=== PATIENT | female | born 1940 | race Hispanic/Latino ===

== ENCOUNTER 2017-05-04 21:36 | Emergency (ER) | payer OTHER, MEDICARE ==
[~2017-05-04] VITALS: Ht 160 cm; Wt 63.5 kg
[~2017-05-04 21:36] MED LIST: ATORVASTATIN CA10 M1 PO; CIPRO500 M1 PO; FLAGYL500 MG PO; HYDROCHLOROTHIA50 M1 PO; LINZESS145 MC1 PO; LISINOPRIL5 M1 PO; METFORMIN HCL500 M3 PO; VANCOMYCIN HCL5 G1 PO
--- NOTE | 2017-05-04 22:29 | ED GI/GU/ABDOMINAL COMPLAINT ---
History of Present Illness General Chief Complaint: Abdominal Pain/Flank Pain Stated Complaint: TINGLING GUMS,ABD PAIN,SHAKING Source: patient Exam Limitations: no limitations Vital Signs & Intake/Output Vital Signs & Intake/Output Vital Signs Date Time Temp Pulse Resp B/P B/P Pulse O2 O2 Flow FiO2 Mean Ox Delivery Rate 05/05 0058 98 Room Air 05/05 0051 98.5 78 18 137/60 97 Room Air 05/04 2152 97.4 88 18 143/76 97 Room Air ED Intake and Output 05/05 0000 05/04 1200 Intake Total Output Total Balance Patient 140 lb Weight Allergies Coded Allergies: amoxicillin (Mild, RASH 12/01/16) aspirin ("BLEEDS INSIDE" 12/01/16) Reconcile Medications Atorvastatin Calcium 10 MG TABLET 1 TAB PO DAILY CHOLESTEROL (Reported) Ciprofloxacin HCl (Cipro) 500 MG TABLET 1 TAB PO BID DIVERITICULITIS Hydrochlorothiazide 50 MG TABLET 1 TAB PO DAILY DIURETIC (Reported) Linaclotide (Linzess) 145 MCG CAPSULE 1 CAP PO DAILY GI (Reported) Lisinopril 5 MG TABLET 1 TAB PO DAILY BP (Reported) Metformin HCl 500 MG TABLET 1 TAB PO BID DM (Reported) Metronidazole (Flagyl) 500 MG TABLET 1 TAB PO 4 TIMES/DAY COLITIS X 10 DAYS Ondansetron (Zofran Odt) 4 MG TAB.RAPDIS 1 TAB SL TID VOMITING/NAUSEA Vancomycin HCl 900 MCG/MG (NOT LESS THAN, FPC) POWDER 125 MG PO Q6 CDIFF COLITIS TAKE DIRECTED Triage Note: 76F WITH HX DIVERTICULITIS WITH DIFFUSE ABDOMINAL PAIN X1 HOUR WITH NEW ONSET VOMITING AND DIARRHEA. AFEBRILE. SHAKEY AND REPORTS NUMBNESS TO GUMS. MEDICATED WITH ZOFRAN IN TRIAGE. Triage Nurses Notes Reviewed? yes ? n Is pt currently ? No Onset: Gradual Duration: day(s): Timing: recent history Quality/Severity: cramping Location: generalized abdomen Radiation: no radiation Activities at Onset: none Prior Abdominal Problems: similar symptoms Modifying Factors: Worsens With: defecating, vomiting. Associated Symptoms: diarrhea, nausea/vomiting HPI: 76 YO WOMAN, h/o diverticulitis, presents with mid abdominal pain, nausea, and one episode of diarrhea, along with abdominal cramps and chills. She noted also a brief episode of perioral tingling (bilateral). Past History Travel History Traveled to [place] past 21 day No Medical History Any Pertinent Medical History? 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 No Review of Systems Review of Systems Constitutional: Reports: no symptoms. EENTM: Reports: no symptoms. Respiratory: Reports: no symptoms. Cardiovascular: Reports: no symptoms. GI: Reports: no symptoms. Genitourinary: Reports: no symptoms. Musculoskeletal: Reports: no symptoms. Skin: Reports: no symptoms. Neurological/Psychological: Reports: no symptoms. Hematologic/Endocrine: Reports: no symptoms. Immunologic/Allergic: Reports: no symptoms. All Other Systems: Reviewed and Negative Physical Exam Physical Exam General Appearance: well developed/nourished, no apparent distress Head: atraumatic, normal appearance Eyes: Bilateral: normal appearance. Ears, Nose, Throat, Mouth: hearing grossly normal Neck: normal inspection, supple, full range of motion, normal alignment Respiratory: normal breath sounds, chest non-tender, no respiratory distress, quiet respiration, lungs clear Cardiovascular: regular rate/rhythm Gastrointestinal: normal bowel sounds, soft, mid abdominal tenderness to palpation. no rebound. no guarding. Back: normal inspection, normal range of motion Extremities: normal range of motion Neurologic/Psych: no motor/sensory deficits, awake, alert, oriented x 3 Skin: intact, normal color, warm/dry Core Measures ACS in differential dx? No Sepsis Present: No Sepsis Focused Exam Completed? No Progress Differential Diagnosis: diverticulitis, influenza vs other. Plan of Care: Orders Procedure Date/time Status RAPID VIRAL INFLUENZA A 05/04 2225 Complete TROPONIN LEVEL 05/04 2154 Complete LIPASE 05/04 2154 Complete HEPATIC FUNCTION PANEL 05/04 2154 Complete CBC WITHOUT DIFFERENTIAL 05/04 2154 Complete BASIC METABOLIC PANEL 05/04 2154 Complete AMYLASE 05/04 2154 Complete EKG 05/04 2138 Active Current Medications Sig/Sarah Start time Last Medication Dose Stop Time Status Admin Ceftriaxone Sodium 1,000 MG ONCE ONE 05/05 0030 CAN (Rocephin) 05/05 0031 Sodium Chloride 1,000 ML BOLUS ONE 05/05 0030 CAN (Normal Saline 0.9%) 05/05 0129 Laboratory Tests 05/04/172219: Anion Gap 13, Estimated GFR 44 L, BUN/Creatinine Ratio 26.7 H, Glucose 136 H, Calcium 9.6, Total Bilirubin 0.2, Direct Bilirubin 0.2, AST 32, ALT 47, Alkaline Phosphatase 55, Troponin I < 0.01, Total Protein 7.5, Albumin 4.5, Amylase 117 H, Lipase 228, CBC w Diff NO MAN DIFF REQ, RBC 4.42, MCV 89.8, MCH 29.6, MCHC 33.0, RDW 14.3, MPV 9.2, Gran % 62.6, Lymphocytes % 29.6, Monocytes % 4.9, Eosinophils % 1.9, Basophils % 1.0, Absolute Granulocytes 5.7, Absolute Lymphocytes 2.7, Absolute Monocytes 0.5, Absolute Eosinophils 0.2, Absolute Basophils 0.1 Microbiology 05/04 2337 NASOPHARYN: Influenza Virus A & B Rapid Smear - COMP Diagnostic Imaging: Viewed by Me: CT Scan. Discussed w/RAD: CT Scan. Radiology Impression: PATIENT: GILBERT POWERS PRESENT AGE: 76 PATIENT ACCOUNT NO: [id number] : 40 LOCATION: [facility] ORDERING PHYSICIAN: Edgard Miller MD SERVICE DATE: 05/04/17 EXAM TYPE: CAT - CT ABD & PELVIS W/O IV CONTRAS EXAMINATION: CT ABDOMEN AND PELVIS WITHOUT CONTRAST CLINICAL INFORMATION: Diarrhea COMPARISON: 12/18/2016 TECHNIQUE: Multidetector volumetric imaging was performed from the superior aspect of the liver through the pubic symphysis. Sagittal and coronal reformatted images were obtained on the technologist's workstation. DLP: 282.44 mGy-cm FINDINGS: LUNG BASES: The visualized lung bases are unremarkable. LIVER, GALLBLADDER, AND BILIARY TREE: The liver is normal in size, shape, and attenuation. No focal hepatic lesion or biliary ductal dilatation is present. The gallbladder is unremarkable with no evidence of radiopaque gallstones, gallbladder wall thickening, or obvious pericholecystic inflammatory changes. PANCREAS: Unremarkable. SPLEEN: Unremarkable. ADRENAL GLANDS: Unremarkable. KIDNEYS AND URETERS: The kidneys are normal in size, shape, and attenuation. No hydronephrosis, hydroureter, or calculi seen. No perinephric stranding. BLADDER: Unremarkable. GASTROINTESTINAL TRACT: Assessment of the colon is suboptimal due to luminal collapse. However, there is suggestion of mural prominence within the ascending, transverse, and proximal to mid descending colon which raises concern for a colitis in the proper clinical setting. There is redemonstration of sigmoid colon diverticulosis without convincing evidence for diverticulitis. No evidence of bowel obstruction. The appendix is unremarkable. No free fluid or free air is seen. ABDOMINAL WALL: No significant hernia is appreciated. LYMPH NODES: Normal. VASCULAR: There is atherosclerotic calcification along the aorta. PELVIC VISCERA: Unremarkable. OSSEOUS STRUCTURES: Degenerative changes are noted in the spine. IMPRESSION: 1. Suboptimal assessment of the colon due to luminal collapse. However, there is suggestion of some wall thickening in the ascending, transverse, and proximal to mid descending colon which raises concern for a colitis in the proper clinical setting. 2. Sigmoid colon diverticulosis without convincing evidence for diverticulitis. DICTATED BY: Fidencio Worrell MD DATE/ TIME DICTATED:05/05/171 DRAPERY HAND:JOVANNY DATE/TIME TRANSCRIBED: 05/05/171 CONFIDENTIAL, DO NOT COPY WITHOUT APPROPRIATE AUTHORIZATION. < Electronically signed in Other Vendor System> SIGNED BY: Fidencio Worrell MD 05/05/17 0015 Initial ED EKG: inferior q waves, nsr, no acute changes Departure Departure Disposition: HOME OR SELF CARE Condition: Stable Clinical Impression Primary Impression: Abdominal pain Secondary Impressions: Colitis Referrals: Lionel Huddleston MD (PCP/Family) Departure Forms: Customer Survey General Discharge Information Prescriptions: Current Visit Scripts Ciprofloxacin HCl (Cipro) 1 TAB PO BID #20 TAB Metronidazole (Flagyl) 1 TAB PO 4 TIMES/DAY #40 TAB X 10 DAYS Ondansetron (Zofran Odt) 1 TAB SL TID #10 TAB Comments 05/05/17, 0:49... PT FEELS WELL, WISHES TO GO HOME... DISCUSSED AT LENGTH WITH PATIENT AND FAMILY.... PT WITH HISTORY OF COLITS/DIVERTICULITIS... WILL TREAT WITH CIPRO/FLAGYL... PT TOLERATED FLUIDS IN THE ed, FEELS WELL.. CLOSE FOLLOW UP ADVISED....
[2017-05-04 22:35] LABS: ABSOLUTE BASOPHIL COUNT 0.1 /CUMM (0.0-0.2); ABSOLUTE EOSINOPHIL COUNT 0.2 /CUMM (0.0-0.7); ABSOLUTE GRANULOCYTE CT 5.7 /CUMM (1.4-6.5); ABSOLUTE LYMPH COUNT 2.7 /CUMM (1.2-3.4); ABSOLUTE MONOCYTE COUNT 0.5 /CUMM (0.10-0.60); EOSINOPHIL % 1.9 % (0-5); GRANULOCYTE % 62.6 % (42.2-75.2); HEMATOCRIT 39.7 % (37-47); MEAN CORPUSCULAR HGB 29.6 PG (27.0-31.0); MEAN CORPUSCULAR VOLUME 89.8 FL (81.0-99.0); MEAN PLATELET VOLUME 9.2 FL (7.4-10.4); PLATELET COUNT 209 /CUMM (130-400); RBC DISTRIBUTION WIDTH 14.3 % (11.5-14.5); RED BLOOD CELL CT 4.42 /CUMM (4.20-5.40); WHITE BLOOD CELL COUNT 9.2 /CUMM (4.8-10.8)
--- NOTE | 2017-05-05 00:15 | CT SCAN REPORT ---
EXAMINATION: CT ABDOMEN AND PELVIS WITHOUT CONTRAST CLINICAL INFORMATION: Diarrhea COMPARISON: 12/18/2016 TECHNIQUE: Multidetector volumetric imaging was performed from the superior aspect of the liver through the pubic symphysis. Sagittal and coronal reformatted images were obtained on the technologist's workstation. DLP: 282.44 mGy-cm FINDINGS: LUNG BASES: The visualized lung bases are unremarkable. LIVER, GALLBLADDER, AND BILIARY TREE: The liver is normal in size, shape, and attenuation. No focal hepatic lesion or biliary ductal dilatation is present. The gallbladder is unremarkable with no evidence of radiopaque gallstones, gallbladder wall thickening, or obvious pericholecystic inflammatory changes. PANCREAS: Unremarkable. SPLEEN: Unremarkable. ADRENAL GLANDS: Unremarkable. KIDNEYS AND URETERS: The kidneys are normal in size, shape, and attenuation. No hydronephrosis, hydroureter, or calculi seen. No perinephric stranding. BLADDER: Unremarkable. GASTROINTESTINAL TRACT: Assessment of the colon is suboptimal due to luminal collapse. However, there is suggestion of mural prominence within the ascending, transverse, and proximal to mid descending colon which raises concern for a colitis in the proper clinical setting. There is redemonstration of sigmoid colon diverticulosis without convincing evidence for diverticulitis. No evidence of bowel obstruction. The appendix is unremarkable. No free fluid or free air is seen. ABDOMINAL WALL: No significant hernia is appreciated. LYMPH NODES: Normal. VASCULAR: There is atherosclerotic calcification along the aorta. PELVIC VISCERA: Unremarkable. OSSEOUS STRUCTURES: Degenerative changes are noted in the spine. IMPRESSION: 1. Suboptimal assessment of the colon due to luminal collapse. However, there is suggestion of some wall thickening in the ascending, transverse, and proximal to mid descending colon which raises concern for a colitis in the proper clinical setting. 2. Sigmoid colon diverticulosis without convincing evidence for diverticulitis.
[2017-05-05] MEDS ORDERED: CIPRO500 M1 PO (00:49)
[2017-05-05] MEDS ORDERED: ZOFRAN ODT4 M1 SL (00:49)
[2017-05-05] MEDS ORDERED: FLAGYL500 MG PO (00:49)
[2017-05-05 00:51] VITALS: BP 137/60
== END 2017-05-05 00:59 ==
LOC: ERH 21:36
PROVIDERS: Pediatrics
DX: K52.9 Noninfective gastroenteritis and colitis, unspecified (principal)
CPT/HCPCS: 74176; 87804; 87804-59; 93005; 93010; 96372; J3101